=== PATIENT | female | born 2000 | race Caucasian/White ===

== ENCOUNTER 2019-08-01 13:25 | Outpatient (CLI) | payer BC ==
--- NOTE | 2019-08-01 14:02 | RAD ---
XR Sternum STANDARD History: Chest contusion and pain Comparison: None. Findings: No acute fracture. Sternum and manubrium are intact. Impression: No acute fracture.
--- NOTE | 2019-08-01 14:05 | RAD ---
XR Ribs Rt>=2 view STANDARD History: Chest contusion and pain Comparison: None. Findings: No displaced rib fracture. Visualized vertebra are intact. No pneumothorax. No effusion. Impression: No displaced rib fracture.
== END 2019-08-01 13:26 | disposition home or self-care (01) ==
LOC: BICRAD 13:25
PROVIDERS: ATTEND Family Medicine
DX: S20.211A Contusion of right front wall of thorax, initial encounter (principal); R07.9 Chest pain, unspecified
CPT/HCPCS: 71120